=== PATIENT | female | born 1945 | race Caucasian/White ===

== ENCOUNTER 2018-06-04 16:10 | Inpatient (IN) | payer MEDICARE ==
[~2018-06-04] VITALS: Ht 160 cm; Wt 106.9 kg
[2018-06-04 16:52] VITALS: BP 110/68
[2018-06-04] MEDS ORDERED: NPH,100V5 SQ (16:57)
[2018-06-04] MEDS ORDERED: NPH,100V5 SQ-INSULIN (17:09)
[2018-06-04] MEDS ORDERED: LACTATED RINGERS 1,000 ML IV SCH (17:23)
[2018-06-04 17:53] LABS: ALANINE AMINOTRANSFERASE 12 U/L (12-78); ALBUMIN 2.3 g/dL (3.4-5.0); ANION GAP 10 mmol/L (5-15); CALCIUM 8.2 mg/dL (8.5-10.1); CHLORIDE 109 mmol/L (98-107); CREATININE 2.15 mg/dL (0.55-1.02)
[2018-06-04 17:55] LABS: ALKALINE PHOSPHATASE 88 U/L (45-117); BILIRUBIN,TOTAL 0.4 mg/dL (0.2-1.0)
[2018-06-04] MEDS ORDERED: PROPOFOL 50 ML ONE (19:21)
[2018-06-04] MEDS ORDERED: FENTANYL PF 100 MCG/2ML ONE (19:21)
[2018-06-04] MEDS ORDERED: ONDANSETRON 2MG/ML, 2ML IV PRN (20:00)
[2018-06-04] MEDS ORDERED: FENTANYL PF 100 MCG/2ML IV PRN (20:00)
[2018-06-04] MEDS ORDERED: MIDAZOLAM 1 MG/ML, 2ML IV PRN (20:00)
[2018-06-04] MEDS ORDERED: EPHEDRINE 50 MG/ML, 1ML IM PRN (20:00)
[2018-06-04] MEDS ORDERED: EPHEDRINE 50 MG/ML, 1ML IVPush PRN (20:00)
[2018-06-04] MEDS ORDERED: ONDANSETRON ODT 8 MG PO PRN (20:00)
[2018-06-04] MEDS ORDERED: OXYcodone 5 MG/5 ML ORAL.SOL UDC PO PRN (20:00)
[2018-06-04] MEDS ORDERED: PROMETHAZINE 25 MG SUPP PR PRN (20:00)
[2018-06-04] MEDS ORDERED: PROMETHAZINE 25 MG/ML, 1ML IV PRN (20:00)
[2018-06-04] MEDS ORDERED: PROMETHAZINE 12.5 MG SUPP PR PRN (20:00)
[2018-06-04] MEDS ORDERED: DIPHENHYDRAMINE 50 MG/ML, 1ML IVPush PRN (20:00)
[2018-06-04] MEDS ORDERED: MORPHINE SULFATE 4 MG/ML, 1ML IVPush PRN (20:00)
[2018-06-04] MEDS ORDERED: CEFAZOLIN 1,000 MG ONE ×2 (20:19→20:21)
[2018-06-04] MEDS ORDERED: ONDANSETRON 2MG/ML, 2ML ONE (20:21)
[2018-06-04] MEDS ORDERED: TOBRAMYCIN SULFATE 1.2 GM IMP ONE (20:42)
[2018-06-04] MEDS ORDERED: VANCOMYCIN 1,000 MG ONE (20:42)
[2018-06-04] MEDS ORDERED: OXYcodone 5 MG/5 ML ORAL.SOL UDC ONE (21:24)
[2018-06-04] MEDS ORDERED: SENNA/DOCUSATE TABLET PO PRN (21:30)
[2018-06-04] MEDS ORDERED: morphine SULFATE 10 MG/ML, 1ML IVPush PRN (21:30)
[2018-06-04] MEDS ORDERED: ONDANSETRON 2MG/ML, 2ML IVPush PRN (21:30)
[2018-06-04] MEDS ORDERED: VANCOMYCIN PER PHARMACY MC PRN (21:30)
[2018-06-04] MEDS ORDERED: BISACODYL 10 MG SUPP PR PRN (21:30)
[2018-06-04] MEDS ORDERED: PHARMACOKINETIC MONITORING MC PRN (22:30)
[2018-06-04] MEDS: PHARMACOKINETIC CONSULTATION MC ONE (22:30)
[2018-06-05 00:24] VITALS: BP 123/55
[2018-06-05] MEDS: CLINDAMYCIN PMX 900MG/50ML 50 ML IVPB SCH ×3 (01:22→18:20)
[2018-06-05] MEDS: OXYcodone/APAP 5/325MG TABLET PO PRN ×2 (02:23→18:27)
[2018-06-05 05:09] LABS: BASOPHILS # (AUTO) 0.02 x10^3/uL (0-0.1); BASOPHILS % (AUTO) 0 % (0-1); EOSINOPHILS % (AUTO) 1 % (1-7); LYMPHOCYTES # (AUTO) 1.26 x10^3/uL (1-3.4); LYMPHOCYTES % (AUTO) 13 % (22-44); MD NO; MEAN CORPUSCULAR HEMOGLOBIN 33.1 pg (27.0-34.8); MEAN CORPUSCULAR HGB CONC 33.3 g/dL (32.4-35.8); MEAN CORPUSCULAR VOLUME 99.4 fL (80-100); MEAN PLATELET VOLUME 7.2 fL (7.4-10.4); MONOCYTES # (AUTO) 0.95 x10^3/uL (0.2-0.8); MONOCYTES % (AUTO) 9 % (2-9); NEUTROPHILS # (AUTO) 7.71 x10^3/uL (1.8-6.8); NEUTROPHILS % (AUTO) 77 % (42-75); PLATELET COUNT 461 x10^3/uL (130-400); RED CELL DISTRIBUTION WIDTH 14.3 % (9.6-15.2)
[2018-06-05 05:12] VITALS: BP 143/67
[2018-06-05 05:24] LABS: ALBUMIN 1.9 g/dL (3.4-5.0); ANION GAP 9 mmol/L (5-15); CALCIUM 7.6 mg/dL (8.5-10.1); CHLORIDE 111 mmol/L (98-107); CREATININE 2.09 mg/dL (0.55-1.02)
[2018-06-05 05:35] LABS: INTERNATIONAL NORMALIZED RATIO 1.14 (0.93-1.1)
[2018-06-05 05:40] LABS: HEMOGLOBIN A1C 7.5 % (4.2-6.3)
[2018-06-05 07:51] VITALS: BP 117/70
[2018-06-05] MEDS ORDERED: INSULIN NPH HUMAN 100 UNIT/ML, 3ML VIAL SQ-INSULIN SCH (09:00)
[2018-06-05] MEDS: DOCUSATE 100 MG CAPSULE PO SCH ×2 (09:00→20:52)
[2018-06-05] MEDS: PHARMACOKINETIC CONSULTATION MC ONE (09:05)
[2018-06-05] MEDS: HEPARIN 5,000 UNITS/ML, 1ML SQ SCH ×2 (09:24→17:31)
[2018-06-05] MEDS: MULTIVITAMINS/MINERALS TABLET PO SCH (09:24)
[2018-06-05 12:36] VITALS: BP 125/54
[2018-06-05] MEDS ORDERED: GLUCAGON 1 MG IM PRN (13:00)
[2018-06-05] MEDS ORDERED: DEXTROSE 50%, 50ML SYRINGE IVPush PRN (13:00)
[2018-06-05] MEDS ORDERED: DEXTROSE 4 GM TAB.CHEW PO PRN (13:00)
[2018-06-05] MEDS: INSULIN LISPRO 100 UNITS/ML, PEN SQ-INSULIN SCH ×2 (16:58→20:51)
[2018-06-05] MEDS ORDERED: VANCOMYCIN 2,000 MG in SODIUM CHLORIDE 0.9% 500 ML IV SCH (18:30)
[2018-06-05 20:22] VITALS: BP 117/44
[2018-06-05] MEDS: SODIUM CHLORIDE FLUSH 10ML SYR IVF SCH (20:44)
[2018-06-05] MEDS: INSULIN NPH HUMAN 100 UNIT/ML, 3ML VIAL SQ-INSULIN SCH (20:51)
[2018-06-05] MEDS: CEFAZOLIN PMX 2GM/50ML 50 ML IVPB SCH (20:52)
[2018-06-06] MEDS: HEPARIN 5,000 UNITS/ML, 1ML SQ SCH ×3 (01:17→21:16)
[2018-06-06 02:29] VITALS: BP 110/65
[2018-06-06 04:36] LABS: BASOPHILS # (AUTO) 0.04 x10^3/uL (0-0.1); BASOPHILS % (AUTO) 1 % (0-1); EOSINOPHILS # (AUTO) 0.29 x10^3/uL (0-0.4); EOSINOPHILS % (AUTO) 3 % (1-7); HCT (SEDRATE) 26.5 % (34.6-47.8); LYMPHOCYTES # (AUTO) 1.34 x10^3/uL (1-3.4); LYMPHOCYTES % (AUTO) 15 % (22-44); MD NO; MEAN CORPUSCULAR HEMOGLOBIN 33.5 pg (27.0-34.8); MEAN CORPUSCULAR HGB CONC 33.2 g/dL (32.4-35.8); MEAN CORPUSCULAR VOLUME 100.8 fL (80-100); MEAN PLATELET VOLUME 7.3 fL (7.4-10.4); MONOCYTES # (AUTO) 0.81 x10^3/uL (0.2-0.8); MONOCYTES % (AUTO) 9 % (2-9); NEUTROPHILS # (AUTO) 6.26 x10^3/uL (1.8-6.8); NEUTROPHILS % (AUTO) 72 % (42-75); PLATELET COUNT 456 x10^3/uL (130-400); RED BLOOD COUNT 2.65 x10^6/uL (3.82-5.3); RED CELL DISTRIBUTION WIDTH 14.3 % (9.6-15.2)
[2018-06-06 04:45] LABS: INTERNATIONAL NORMALIZED RATIO 1.08 (0.93-1.1); PROTHROMBIN TIME 11.4 Seconds (9.6-11.5)
[2018-06-06 04:49] LABS: ANION GAP 9 mmol/L (5-15); CALCIUM 7.4 mg/dL (8.5-10.1); CHLORIDE 110 mmol/L (98-107)
[2018-06-06 04:59] LABS: ALANINE AMINOTRANSFERASE 11 U/L (12-78); ALKALINE PHOSPHATASE 73 U/L (45-117); BILIRUBIN,TOTAL 0.2 mg/dL (0.2-1.0); TOTAL PROTEIN 6.8 g/dL (6.4-8.2)
[2018-06-06 06:16] LABS: SEDIMENTATION RATE > 120 mm/hr (0-20)
[2018-06-06 07:00] VITALS: BP 128/58
[2018-06-06] MEDS: POTASSIUM CHLORIDE 10 MEQ in SODIUM CHLORIDE 0.9% 1,000 ML IV SCH ×2 (08:50→21:00)
[2018-06-06] MEDS: CEFAZOLIN PMX 2GM/50ML 50 ML IVPB SCH ×2 (08:51→21:25)
[2018-06-06] MEDS: SODIUM BICARBONATE 650 MG TABLET PO SCH ×2 (08:51→21:16)
[2018-06-06] MEDS: DOCUSATE 100 MG CAPSULE PO SCH ×2 (08:51→21:16)
[2018-06-06] MEDS: MULTIVITAMINS/MINERALS TABLET PO SCH (08:51)
[2018-06-06] MEDS: SODIUM CHLORIDE FLUSH 10ML SYR IVF SCH ×2 (08:52→19:51)
[2018-06-06] MEDS: INSULIN LISPRO 100 UNITS/ML, PEN SQ-INSULIN SCH ×4 (08:52→21:00)
[2018-06-06] MEDS: INSULIN NPH HUMAN 100 UNIT/ML, 3ML VIAL SQ-INSULIN SCH ×2 (08:53→21:24)
[2018-06-06 12:08] VITALS: BP 121/61
[2018-06-06 20:31] VITALS: BP 119/64
[2018-06-06] MEDS: OXYcodone/APAP 5/325MG TABLET PO PRN (21:25)
[2018-06-07 02:47] VITALS: BP 107/60
[2018-06-07 05:57] LABS: INTERNATIONAL NORMALIZED RATIO 1.04 (0.93-1.1)
[2018-06-07 06:03] LABS: ANION GAP 9 mmol/L (5-15); CALCIUM 7.8 mg/dL (8.5-10.1); CHLORIDE 112 mmol/L (98-107)
[2018-06-07 06:04] LABS: CREATININE 2.53 mg/dL (0.55-1.02)
[2018-06-07] MEDS: INSULIN LISPRO 100 UNITS/ML, PEN SQ-INSULIN SCH ×4 (06:18→21:00)
[2018-06-07 07:03] VITALS: BP 141/61
[2018-06-07] MEDS: SODIUM BICARBONATE 650 MG TABLET PO SCH ×2 (08:49→23:05)
[2018-06-07] MEDS: CEFAZOLIN PMX 2GM/50ML 50 ML IVPB SCH ×2 (08:49→23:05)
[2018-06-07] MEDS: MULTIVITAMINS/MINERALS TABLET PO SCH (08:49)
[2018-06-07] MEDS: HEPARIN 5,000 UNITS/ML, 1ML SQ SCH ×2 (08:50→23:05)
[2018-06-07] MEDS: DOCUSATE 100 MG CAPSULE PO SCH ×2 (08:51→23:05)
[2018-06-07] MEDS: INSULIN NPH HUMAN 100 UNIT/ML, 3ML VIAL SQ-INSULIN SCH ×2 (08:51→23:10)
[2018-06-07] MEDS: SODIUM CHLORIDE FLUSH 10ML SYR IVF SCH ×2 (08:52→21:00)
[2018-06-07 12:57] VITALS: BP 125/59
[2018-06-07 20:10] VITALS: BP 146/83
[2018-06-08] MEDS: OXYcodone/APAP 5/325MG TABLET PO PRN (00:40)
[2018-06-08 01:53] VITALS: BP 146/65
[2018-06-08 06:48] LABS: INTERNATIONAL NORMALIZED RATIO 1.03 (0.93-1.1); PROTHROMBIN TIME 10.9 Seconds (9.6-11.5)
[2018-06-08] MEDS: INSULIN LISPRO 100 UNITS/ML, PEN SQ-INSULIN SCH ×3 (07:00→16:30)
[2018-06-08 07:30] VITALS: BP 157/83
[2018-06-08] MEDS: SODIUM BICARBONATE 650 MG TABLET PO SCH (08:48)
[2018-06-08] MEDS: DOCUSATE 100 MG CAPSULE PO SCH (08:48)
[2018-06-08] MEDS: MULTIVITAMINS/MINERALS TABLET PO SCH (08:48)
[2018-06-08] MEDS: HEPARIN 5,000 UNITS/ML, 1ML SQ SCH (08:49)
[2018-06-08] MEDS: INSULIN NPH HUMAN 100 UNIT/ML, 3ML VIAL SQ-INSULIN SCH (08:49)
[2018-06-08] MEDS: CEFAZOLIN PMX 2GM/50ML 50 ML IVPB SCH (08:50)
[2018-06-08] MEDS: SODIUM CHLORIDE FLUSH 10ML SYR IVF SCH (08:54)
[2018-06-08] MEDS ORDERED: DAPTOMYCIN 600 MG in SODIUM CHLORIDE 0.9% 100 ML IV SCH (10:00)
[2018-06-08 12:35] VITALS: BP 132/69
[2018-06-08] MEDS ORDERED: MULT-484 PO (15:42)
[2018-06-08] MEDS ORDERED: DAPT500V6 IV (15:42)
[2018-06-08] MEDS ORDERED: SODI650T PO (15:42)
[2018-06-08] MEDS ORDERED: NPH,100V SQ-INSULIN ×2 (15:42)
[2018-06-08 17:59] VITALS: BP 128/70
== END 2018-06-08 18:44 | disposition home health service (06) | DRG 500 ==
LOC: OR 16:10 → 4NOR 21:11
PROVIDERS: ADMIT Orthopaedic Surgery; ATTEND Orthopaedic Surgery
PROC: 0MBP0ZZ Excision of Left Knee Bursa and Ligament, Open Approach (ICD-10-PCS; principal; 2018-06-04 17:45)
PROC: 02HV33Z Insertion of Infusion Device into Superior Vena Cava, Percutaneous Approach (ICD-10-PCS; 2018-06-07)
PROC: B548ZZA Ultrasonography of Superior Vena Cava, Guidance (ICD-10-PCS; 2018-06-07)
PROC: B5181ZA Fluoroscopy of Superior Vena Cava using Low Osmolar Contrast, Guidance (ICD-10-PCS; 2018-06-07)
DX: M71.162 Other infective bursitis, left knee (principal); E43 Unspecified severe protein-calorie malnutrition; N18.4 Chronic kidney disease, stage 4 (severe); Z68.41 Body mass index [BMI] 40.0-44.9, adult; E11.65 Type 2 diabetes mellitus with hyperglycemia; E11.22 Type 2 diabetes mellitus with diabetic chronic kidney disease; D63.8 Anemia in other chronic diseases classified elsewhere; Z90.89 Acquired absence of other organs; Z88.0 Allergy status to penicillin; Z88.8 Allergy status to other drugs, medicaments and biological substances; Z79.4 Long term (current) use of insulin; Z83.3 Family history of diabetes mellitus; Z80.9 Family history of malignant neoplasm, unspecified; Z82.49 Family history of ischemic heart disease and other diseases of the circulatory system; Z91.81 History of falling
CPT/HCPCS: 36415; 36569; 76937; 77001; 80048; 80053; 80202; 82040; 82550; 82962; 83036; 83735; 84100; 85025; 85610; 85651; 86140; 87040; 87070; 87075; 87077; 87147; 87186; 87205; 93005; G0378; J0690; J0878; J1644; J1815; J2405; J2704; J3010; J3260; J3370; J3480; C1751; J7030; J7120